=== PATIENT | male | born 1970 | race African-American/Black ===

== ENCOUNTER 2022-03-10 12:27 | Day surgery (SDC) | payer MEDICARE ==
[2022-03-10] MEDS ORDERED: Decadron 4 MG INJ IV ONE (12:28)
[2022-03-10] MEDS ORDERED: LIDOCAINE HCL 2% 100 MG/5 ML IJ ONE (12:28)
[2022-03-10] MEDS ORDERED: DIPRIVAN 200 MG/20 ML IV ONE ×2 (14:27→14:34)
--- NOTE | 2022-03-10 14:56 | XRAY ---
15 seconds fluoroscopy time in surgery for left C2-C4 MBB.
--- NOTE | 2022-03-10 14:58 | XRAY ---
Indication: Left C2-C4 MBB. Intraoperative fluoroscopy provided for 15 seconds. 2 digital spot image submitted for interpretation demonstrates posterior needle tips projecting over the expected left C2-C4 nerve roots. Correlate with intraoperative findings/report. Incidental partially visualized lower cervical fusion hardware and left carotid endarterectomy clips.
[2022-03-10] MEDS ORDERED: Lactated Ringers 1,000 ML IV ONE (17:28)
== END 2022-03-10 14:52 | disposition home or self-care (01) ==
LOC: SDC-PAIN 12:27
PROVIDERS: ATTEND Psychiatry & Neurology Pain Medicine
DX: M47.812 Spondylosis without myelopathy or radiculopathy, cervical region (principal); Z79.899 Other long term (current) drug therapy
CPT/HCPCS: 64490; 64491; 72040; 77002; J1100; J2704

== ENCOUNTER 2022-04-14 10:35 | Day surgery (SDC) | payer MEDICARE ==
[2022-04-14] MEDS ORDERED: BUPIVACAINE 0.5% VIAL IJ ONE (10:36)
[2022-04-14] MEDS ORDERED: Decadron 4 MG INJ IV ONE (10:36)
[2022-04-14] MEDS ORDERED: DIPRIVAN 200 MG/20 ML IV ONE (12:16)
--- NOTE | 2022-04-14 12:46 | XRAY ---
Indication: Left C2-C4 MBB. Intraoperative fluoroscopy provided for 21 seconds. 2 digital spot images submitted for interpretation demonstrates posterior needle tips projecting over the expected left C2-C4 nerve roots. Correlate with intraoperative findings/report. Incidental partially visualized lower cervical fusion hardware and left carotid enterectomy clips.
[2022-04-14] MEDS ORDERED: Lactated Ringers 1,000 ML IV ONE (14:32)
--- NOTE | 2022-04-14 14:39 | XRAY ---
21 seconds of fluoroscopy was used in surgery for a left C2-C4 MBB.
== END 2022-04-14 12:36 | disposition home or self-care (01) ==
LOC: SDC-PAIN 10:35
PROVIDERS: ATTEND Psychiatry & Neurology Pain Medicine
DX: M47.812 Spondylosis without myelopathy or radiculopathy, cervical region (principal); Z79.899 Other long term (current) drug therapy
CPT/HCPCS: 64490; 64491; 72040; 77002; J1100; J2704

== ENCOUNTER 2022-05-05 12:12 | Day surgery (SDC) | payer MEDICARE ==
[2022-05-05] MEDS ORDERED: BUPIVACAINE 0.5% VIAL IJ ONE (12:13)
[2022-05-05] MEDS ORDERED: Xylocaine 1% Vial 30 ML PF IJ ONE (12:13)
[2022-05-05] MEDS ORDERED: Decadron 4 MG INJ IV ONE (12:13)
[2022-05-05] MEDS ORDERED: DIPRIVAN 200 MG/20 ML IV ONE (13:05)
[2022-05-05] MEDS ORDERED: Lactated Ringers 1,000 ML IV ONE (13:36)
--- NOTE | 2022-05-05 14:22 | XRAY ---
33 seconds fluoroscopy time in surgery for left C2-C4 RFA.
--- NOTE | 2022-05-05 14:26 | XRAY ---
Indication: Left C2-C4 RFA. Intraoperative fluoroscopy provided for 33 seconds. 2 digital spot images submitted for interpretation demonstrates posterior needle tips projecting over the left C2-C4 nerve roots. Correlate with intraoperative findings/report.
== END 2022-05-05 13:35 | disposition home or self-care (01) ==
LOC: SDC-PAIN 12:12
PROVIDERS: ATTEND Psychiatry & Neurology Pain Medicine
DX: M47.812 Spondylosis without myelopathy or radiculopathy, cervical region (principal); Z79.899 Other long term (current) drug therapy
CPT/HCPCS: 64633; 64634; 72040; 77002; J1100; J2001; J2704

== ENCOUNTER 2022-07-07 12:45 | Day surgery (SDC) | payer MEDICARE ==
[2022-07-07] MEDS ORDERED: LIDOCAINE HCL 1% 50 MG/5 ML VL PF IJ ONE (12:46)
[2022-07-07] MEDS ORDERED: BUPIVACAINE 0.5% VIAL IJ ONE (12:46)
[2022-07-07] MEDS ORDERED: Depo-Medrol 40 MG/ML IM ONE (12:46)
[2022-07-07] MEDS ORDERED: DIPRIVAN 200 MG/20 ML IV ONE (15:00)
[2022-07-07] MEDS ORDERED: Lactated Ringers 1,000 ML IV ONE (15:38)
--- NOTE | 2022-07-07 16:53 | XRAY ---
Indication: Left costochondral injection. Intraoperative fluoroscopy provided for 17 seconds. 4 digital spot image submitted for interpretation demonstrates needle tips projecting over unknown multiple left anterior ribs. Correlate with intraoperative findings/report.
--- NOTE | 2022-07-07 16:55 | XRAY ---
17 seconds of fluoroscopy was used in surgery for a left costochondral joint and intercostal joint injection.
== END 2022-07-07 15:30 | disposition home or self-care (01) ==
LOC: SDC-PAIN 12:45
PROVIDERS: ATTEND Psychiatry & Neurology Pain Medicine
DX: M94.0 Chondrocostal junction syndrome [Tietze] (principal); Z79.899 Other long term (current) drug therapy
CPT/HCPCS: 20600; 64420; 71100; 77002; J1030; J2001; J2704

== ENCOUNTER 2022-09-15 13:50 | Day surgery (SDC) | payer MEDICARE ==
[2022-09-15] MEDS ORDERED: LIDOCAINE HCL 1% 50 MG/5 ML VL PF IJ ONE (13:51)
[2022-09-15] MEDS ORDERED: Sodium Chloride 0.9(Preservative Free) 10 ML IJ ONE (13:51)
[2022-09-15] MEDS ORDERED: Decadron 4 MG INJ IV ONE (13:51)
[2022-09-15] MEDS ORDERED: Depo-Medrol 40 MG/ML IM ONE (13:51)
[2022-09-15] MEDS ORDERED: DIPRIVAN 200 MG/20 ML IV ONE (15:51)
--- NOTE | 2022-09-15 16:31 | XRAY ---
Indication: Left L4-S1 transforaminal MILAGROS. Intraoperative fluoroscopy provided for 26 seconds. 5 digital spot image submitted for interpretation demonstrates posterior needle tips projecting over the expected left L4 and L5 nerve roots. Small amount of contrast injected for needle tip placement. Correlate with intraoperative findings/report.
--- NOTE | 2022-09-15 16:35 | XRAY ---
Indication: Left piriformis injection. Intraoperative fluoroscopy provided for 9 seconds. Single digital spot image submitted for interpretation demonstrates posterior needle tip projecting over the left piriformis muscle. Small amount of contrast injected for needle tip placement. Correlate with intraoperative findings/report.
[2022-09-15] MEDS ORDERED: Lactated Ringers 1,000 ML IV ONE (17:15)
--- NOTE | 2022-09-16 08:42 | XRAY ---
26 seconds of fluoroscopy was used in surgery for a left L4-S1 transforaminal MILAGROS.
--- NOTE | 2022-09-16 08:42 | XRAY ---
9 seconds of fluoroscopy was used in surgery for a left piriformis injection.
== END 2022-09-15 16:25 | disposition home or self-care (01) ==
LOC: SDC-PAIN 13:50
PROVIDERS: ATTEND Psychiatry & Neurology Pain Medicine
DX: M54.16 Radiculopathy, lumbar region (principal); M79.18 Myalgia, other site; Z79.899 Other long term (current) drug therapy
CPT/HCPCS: 20552; 64483; 64484; 72100; 72170; 77002; 77003; J1030; J1100; J2001; J2704; Q9966

== ENCOUNTER 2022-12-22 09:45 | Day surgery (SDC) | payer MEDICARE ==
[2022-12-22] MEDS ORDERED: BUPIVACAINE 0.5% VIAL IJ ONE (09:46)
[2022-12-22] MEDS ORDERED: Depo-Medrol 40 MG/ML IM ONE (09:46)
[2022-12-22] MEDS ORDERED: DIPRIVAN 200 MG/20 ML IV ONE ×2 (11:12→11:18)
--- NOTE | 2022-12-22 12:19 | XRAY ---
Indication: Right 10/11/10 and left 410 rib intercostal nerve block. Intraoperative fluoroscopy provided for 35 seconds. 7 digital spot images submitted for interpretation demonstrates posterior needle tips projecting just inferior to the above left and right ribs. Correlate with intraoperative findings/report.
--- NOTE | 2022-12-22 13:18 | XRAY ---
35 seconds of fluoroscopy was used in surgery for a bilateral intercostal nerve block.
[2022-12-22] MEDS ORDERED: Lactated Ringers 1,000 ML IV ONE (13:56)
== END 2022-12-22 11:45 | disposition home or self-care (01) ==
LOC: SDC-PAIN 09:45
PROVIDERS: ATTEND Psychiatry & Neurology Pain Medicine
DX: R07.81 Pleurodynia (principal); Z79.899 Other long term (current) drug therapy
CPT/HCPCS: 64420; 71110; 77002; J1030; J2704

== ENCOUNTER 2023-05-18 11:16 | Day surgery (SDC) | payer MEDICARE ==
[2023-05-18] MEDS ORDERED: Decadron 4 MG INJ IV ONE (11:17)
[2023-05-18] MEDS ORDERED: XYLOCAINE-MPF 1% 5ML SDV IJ ONE (11:17)
[2023-05-18] MEDS ORDERED: DIPRIVAN 200 MG/20 ML IV ONE ×2 (12:56→13:02)
[2023-05-18] MEDS ORDERED: Lactated Ringers 1,000 ML IV ONE (14:34)
--- NOTE | 2023-05-18 15:05 | XRAY ---
Indication: Left piriformis injection. Intraoperative fluoroscopy provided for 11 seconds. Single digital spot image submitted for interpretation demonstrates posterior needle tip projecting over the left piriformis. Small amount of contrast injected for needle tip placement. Correlate with intraoperative findings/report.
--- NOTE | 2023-05-18 15:07 | XRAY ---
11 seconds of fluoroscopy was used in surgery for a left piriformis injection.
== END 2023-05-18 13:27 | disposition home or self-care (01) ==
LOC: SDC-PAIN 11:16
PROVIDERS: ATTEND Psychiatry & Neurology Pain Medicine
DX: M79.18 Myalgia, other site (principal)
CPT/HCPCS: 20553; 72170; 77002; J1100; J2704; Q9966

== ENCOUNTER 2023-10-05 12:06 | Day surgery (SDC) | payer MEDICARE ==
[2023-10-05] MEDS ORDERED: Decadron 4 MG INJ IV ONE (12:07)
[2023-10-05] MEDS ORDERED: LIDOCAINE HCL 1% 50 MG/5 ML VL PF IJ ONE (12:07)
[2023-10-05] MEDS ORDERED: DIPRIVAN 200 MG/20 ML IV ONE (13:16)
[2023-10-05] MEDS ORDERED: Xylocaine-Mpf 2% 5 Ml Vial ONE (13:20)
[2023-10-05] MEDS ORDERED: Lactated Ringers 1,000 ML IV ONE (14:05)
--- NOTE | 2023-10-05 14:51 | XRAY ---
Indication: Left piriformis injection. Intraoperative fluoroscopy provided for 11 seconds. Single digital spot image submitted for interpretation demonstrates posterior needle tip projecting over left piriformis. Small amount of contrast injected for needle tip placement. Correlate with intraoperative findings/report.
--- NOTE | 2023-10-05 17:39 | XRAY ---
11 seconds of fluoroscopy was used in surgery for a left piriformis injection.
== END 2023-10-05 13:44 | disposition home or self-care (01) ==
LOC: SDC-PAIN 12:06
PROVIDERS: ATTEND Psychiatry & Neurology Pain Medicine
DX: M79.18 Myalgia, other site (principal)
CPT/HCPCS: 20552; 72170; 77002; J1100; J2001; J2704; Q9966

== ENCOUNTER 2024-02-01 14:20 | Day surgery (SDC) | payer MEDICARE ==
[2024-02-01] MEDS ORDERED: LIDOCAINE HCL 1% 50 MG/5 ML VL PF IJ ONE (14:21)
[2024-02-01] MEDS ORDERED: Depo-Medrol 40 MG/ML IM ONE (14:21)
[2024-02-01] MEDS ORDERED: Decadron 4 MG INJ IV ONE (14:21)
[2024-02-01] MEDS ORDERED: Lactated Ringers 1,000 ML IV ONE (15:36)
[2024-02-01] MEDS ORDERED: DIPRIVAN 200 MG/20 ML IV ONE ×2 (15:49→15:55)
[2024-02-01] MEDS ORDERED: MORPHINE SULFATE 2 MG INJ ONE ×2 (16:21→16:43)
--- NOTE | 2024-02-01 18:58 | XRAY ---
Indication: Left C2-C4 RFA. Intraoperative fluoroscopy provided for 28 seconds. 3 digital spot image submitted for interpretation demonstrates posterior needle tips projecting over the expected left C2-C4 nerve roots. Correlate with intraoperative findings/report. Incidental C3-C7 intervertebral fusion hardware.
--- NOTE | 2024-02-02 12:14 | XRAY ---
28 seconds of fluoroscopy was used in surgery for a left C2-C4 RFA.
== END 2024-02-01 17:15 | disposition home or self-care (01) ==
LOC: SDC-PAIN 14:20
PROVIDERS: ATTEND Psychiatry & Neurology Pain Medicine
DX: M47.812 Spondylosis without myelopathy or radiculopathy, cervical region (principal); M79.18 Myalgia, other site
CPT/HCPCS: 20552; 64633; 64634; 72040; 77002; J1100; J2001; J2270; J2704

== ENCOUNTER 2024-09-12 10:06 | Day surgery (SDC) | payer MEDICARE ==
[2024-09-12] MEDS ORDERED: LIDOCAINE HCL 1% AMPUL 5 ML IJ ONE (10:07)
[2024-09-12] MEDS ORDERED: Sodium Chloride 0.9(Preservative Free) 10 ML IJ ONE (10:07)
[2024-09-12] MEDS ORDERED: Depo-Medrol 40 MG/ML IM ONE (10:07)
[2024-09-12] MEDS ORDERED: dexAMETHasone sodium phosphate IJ ONE (10:07)
[2024-09-12] MEDS ORDERED: propofoL IV ONE ×2 (12:07→12:16)
--- NOTE | 2024-09-12 13:33 | XRAY ---
Indication: Caudal MILAGROS. Intraoperative fluoroscopy provided for 16 seconds. 2 digital spot image submitted for interpretation demonstrates caudal needle tip projecting mid sacrum. Small amount of contrast injected for needle tip placement. Correlate with intraoperative findings/report.
--- NOTE | 2024-09-12 13:35 | XRAY ---
Indication: Bilateral piriformis injection. Intraoperative fluoroscopy provided for 20 seconds. 3 digital spot image submitted for interpretation demonstrates posterior needle tips projecting over left and right piriformis. Small amount of contrast injected for needle tip placement. Correlate with intraoperative findings/report.
--- NOTE | 2024-09-12 14:44 | XRAY ---
20 seconds of fluoroscopy was used in surgery for a bilateral piriformis injection.
--- NOTE | 2024-09-12 14:44 | XRAY ---
16 seconds of fluoroscopy was used in surgery for a caudal MILAGROS.
== END 2024-09-12 12:42 | disposition home or self-care (01) ==
LOC: SDC-PAIN 10:06
PROVIDERS: ATTEND Psychiatry & Neurology Pain Medicine
DX: M54.16 Radiculopathy, lumbar region (principal); M79.18 Myalgia, other site
CPT/HCPCS: 20552; 62323; 72170; 72220; 77002; 77003; J1100; J2704; Q9966